=== PATIENT | male | born 1975 | race Asian ===

== ENCOUNTER 2018-01-17 12:23 | Emergency (ER) | payer OTHER ==
[~2018-01-17] VITALS: Ht 177.8 cm; Wt 129.7 kg
[~2018-01-17 12:23] MED LIST: ABILIFY15 M1 PO; ACT300 PO; ACTIGALL300 MG PO; CARVEDILOL PO; CARVEDILOL25 M1 PO; DIGOXIN; DIGOXIN0.25 M1 PO; FLO4 PO; FUROSEMIDE20 MG PO; GEODON20 MG; GEODON40 MG PO; HALOPERIDOL5 MG PO; JANUVIA100 M1 PO; LAC PO; LASIX20 MG PO; LEVAQUIN750 MG PO; MEDDP PO; OXYBUTYNIN CHLOR5 MG PO; PROVENTIL0.09 MG/A1 INH; PYRIDIUM200 MG PO; RAMIPRIL; RAMIPRIL2.5 MG PO; SIMVASTATIN40 M1 PO; TIROSINT150 MC1 PO
[2018-01-17 13:03] VITALS: Ht 177.8 cm; Wt 129.7 kg
[2018-01-17 13:56] VITALS: BP 132/72
== END 2018-01-17 14:15 | disposition home or self-care (01) ==
LOC: ED 12:23
DX: I83.892 Varicose veins of left lower extremity with other complications (principal); R31.9 Hematuria, unspecified; J44.9 Chronic obstructive pulmonary disease, unspecified; I50.9 Heart failure, unspecified; I11.0 Hypertensive heart disease with heart failure; E11.9 Type 2 diabetes mellitus without complications; E78.00 Pure hypercholesterolemia, unspecified

== ENCOUNTER 2018-02-22 18:16 | Inpatient (IN) | payer OTHER ==
[~2018-02-22] VITALS: Ht 177.8 cm; Wt 130.0 kg
[2018-02-22] MEDS ORDERED: ZYPREXA10 M1 PO (19:25)
[2018-02-22] MEDS ORDERED: ZYPREXA20 M1 PO (19:26)
[2018-02-22] MEDS ORDERED: COG1 PO (19:26)
[2018-02-22] MEDS ORDERED: LORAZEPAM1 MG PO (19:26)
[2018-02-22] MEDS ORDERED: OLANZAPINE5 M2 (19:27)
[2018-02-22] MEDS ORDERED: METFORMIN500 M1 PO (19:27)
[2018-02-22 19:32] LABS: microscopic required? NO
[2018-02-22 20:04] LABS: CALCIUM 8.9 mg/dL (8.5-10.1); CARBON DIOXIDE 26.5 mmol/L (21-32); CHLORIDE SERUM 99 mmol/L (98-107); CREATININE SERUM 0.9 mg/dL (0.7-1.3); GFR1 > 60 mL/min; GLUCOSE SERUM 194 mg/dL (74-106); POTASSIUM SERUM 3.3 mmol/L (3.5-5.1); SODIUM SERUM 138 mmol/L (136-145)
[2018-02-22 20:06] LABS: ALBUMIN 3.4 g/dL (3.4-5.0); ALKALINE PHOSPHATASE 105 U/L (46-116); ALT/SGPT 35 U/L (16-63); AST/SGOT 11 U/L (15-37); BASOPHIL % 0.7 % (0-2); BILIRUBIN TOTAL 0.4 mg/dL (0.20-1.00); PLATELET COUNT 339 x10^3mcL (130-400)
[2018-02-22 20:19] LABS: RED CELL DISTRIBUTION WIDTH 18.3 % (11.5-14.5)
[2018-02-22 20:44] LABS: UA SPECIFIC GRAVITY 1.025 (1.005-1.035); urine erythrocyte NEGATIVE (NEGATIVE)
[2018-02-22 21:01] LABS: AMPHETAMINE QUAL UR NONE DETECTED (See below)
[2018-02-22 23:39] LABS: MAGNESIUM 1.9 mg/dL (1.8-2.4); PHOSPHOROUS 3.2 mg/dL (2.5-4.9)
[2018-02-22 23:40] LABS: CHOLESTEROL/HDL RATIO 5.1
[2018-02-23 00:47] VITALS: BP 118/71
[2018-02-23 05:30] VITALS: BP 113/77
[2018-02-23 06:17] LABS: BASOPHIL % 0.4 % (0-2); PLATELET COUNT 336 x10^3mcL (130-400)
[2018-02-23 06:33] LABS: CALCIUM 8.3 mg/dL (8.5-10.1); CHLORIDE SERUM 101 mmol/L (98-107); CREATININE SERUM 0.7 mg/dL (0.7-1.3); GFR1 > 60 mL/min; GLUCOSE SERUM 105 mg/dL (74-106); POTASSIUM SERUM 3.5 mmol/L (3.5-5.1); SODIUM SERUM 137 mmol/L (136-145)
[2018-02-23 06:54] LABS: RED CELL DISTRIBUTION WIDTH 18.3 % (11.5-14.5)
[2018-02-23 08:56] VITALS: BP 127/87
[2018-02-23 17:08] VITALS: BP 118/75
[2018-02-23 21:36] VITALS: BP 120/77
[2018-02-24 09:30] VITALS: BP 127/74
[2018-02-24 13:57] VITALS: BP 136/78
[2018-02-24 17:11] VITALS: BP 154/93
[2018-02-24 19:57] VITALS: BP 113/69
[2018-02-25 05:45] VITALS: BP 135/79
[2018-02-25 06:33] LABS: BASOPHIL % 0.4 % (0-2); PLATELET COUNT 310 x10^3mcL (130-400)
[2018-02-25 06:46] LABS: CALCIUM 8.4 mg/dL (8.5-10.1); CARBON DIOXIDE 27.8 mmol/L (21-32); CHLORIDE SERUM 102 mmol/L (98-107); CREATININE SERUM 0.7 mg/dL (0.7-1.3); GFR1 > 60 mL/min; GLUCOSE SERUM 95 mg/dL (74-106); POTASSIUM SERUM 3.6 mmol/L (3.5-5.1); SODIUM SERUM 138 mmol/L (136-145)
[2018-02-25 06:52] LABS: RED CELL DISTRIBUTION WIDTH 18.2 % (11.5-14.5)
[2018-02-25 08:37] VITALS: BP 131/71
[2018-02-25 12:29] VITALS: BP 153/90
[2018-02-25 18:00] VITALS: BP 143/91
[2018-02-25 21:18] VITALS: BP 140/90
[2018-02-25 22:06] VITALS: BP 140/90
== END 2018-02-25 22:40 | DRG 917 ==
LOC: ED 18:16 → DU 20:32
PROVIDERS: Internal Medicine; Specialist; ADMIT Family Medicine
DX: T44.7X2A Poisoning by beta-adrenoreceptor antagonists, intentional self-harm, initial encounter (principal); G92 Toxic encephalopathy; R45.851 Suicidal ideations; F20.0 Paranoid schizophrenia; Z68.41 Body mass index [BMI] 40.0-44.9, adult; D75.1 Secondary polycythemia; J44.9 Chronic obstructive pulmonary disease, unspecified; E11.9 Type 2 diabetes mellitus without complications; I10 Essential (primary) hypertension; E78.5 Hyperlipidemia, unspecified; Y92.018 Other place in single-family (private) house as the place of occurrence of the external cause; Z79.84 Long term (current) use of oral hypoglycemic drugs
CPT/HCPCS: 82962; 83880; G0480; J7030; Q0092